=== PATIENT | female | born 1990 | race African-American/Black ===

== ENCOUNTER 2016-06-08 19:36 | Emergency (ER) | payer MEDICAID ==
[~2016-06-08 19:36] MED LIST: PREN-88 PO
== END 2016-06-08 22:20 | disposition left against medical advice (07) ==
LOC: ER 21:57
DX: R10.9 Unspecified abdominal pain (principal)

== ENCOUNTER 2016-06-09 00:54 | Emergency (ER) | payer MEDICAID ==
[~2016-06-09] VITALS: Ht 160 cm; Wt 68.6 kg
[2016-06-09 02:34] LABS: BASOPHILS % 0.8 % (0.0-2.0); EOSINOPHILS % 0.5 % (0.0-5.0); HEMATOCRIT. 48.3 % (36.0-48.0); HEMOGLOBIN. 16.2 g/dL (12.0-16.0); LYMPHOCYTES % 23.3 % (20.0-50.0); MEAN CORPUSCULAR HEMOGLOBIN 29.4 pg (28.0-32.0); MEAN CORPUSCULAR HGB CONC 33.5 g/dL (31.0-37.0); MEAN CORPUSCULAR VOLUME 87.7 fL (81.0-99.0); MEAN PLATELET VOLUME 9.5 fl (7.4-10.4); NEUTROPHILS % 67.4 % (40.0-76.0); PLATELET 205 x1000/uL (130-400); WHITE BLOOD COUNT 7.1 x1000/uL (4.5-11.0)
[2016-06-09 02:36] LABS: CLARITY URINE CLOUDY (CLEAR); COLOR URINE DARK YELLOW (YELLOW); GLUCOSE URINE NEGATIVE (NEGATIVE); KETONES URINE 1+ (NEGATIVE); LEUKOCYTE ESTERASE URINE 1+ (NEGATIVE); NITRITE URINE NEGATIVE (NEGATIVE); OCCULT BLOOD URINE NEGATIVE (NEGATIVE); PH URINE 6.5 (4.5-8.0); PROTEIN URINE 1+ (NEGATIVE); SPECIFIC GRAVITY URINE 1.039 (1.005-1.030)
[2016-06-09 02:38] LABS: CHLORIDE 99 mEq/L (98-107); INDEX HEMOLYSI 1 (1-3); INDEX ICTERIC 1 (1-4); INDEX LIPEMIC 1 (1-3)
[2016-06-09 02:39] LABS: INR 1.1; PROTHROMBIN TIME 11.6 sec
[2016-06-09 02:40] VITALS: BP 112/79
[2016-06-09 02:46] LABS: ALANINE AMINOTRANSFERASE 26 IU/L (13-61); ALBUMIN 4.3 g/dL (3.4-5.0); ANION GAP 14; CALCIUM 9.1 mg/dL (8.5-10.1); CARBON DIOXIDE 29 mEq/L (21-32); LIPASE 122 IU/L (73-393); UREA NITROGEN BLOOD 12 mg/dL (7-21); eGFR > 60 mL/min (>60)
[2016-06-09 03:00] LABS: SQUAMOUS EPITHELIAL CELL URINE 3+ /lpf (RARE/1+)
[2016-06-09 03:03] LABS: RBC URINE 0-2 /hpf (0-2)
[2016-06-09 03:06] LABS: BACTERIA URINE 1+
== END 2016-06-09 03:53 | disposition home or self-care (01) ==
LOC: ER 00:57
DX: N39.0 Urinary tract infection, site not specified (principal); F12.10 Cannabis abuse, uncomplicated; F17.200 Nicotine dependence, unspecified, uncomplicated
CPT/HCPCS: 36415; 80053; 81001; 81025; 83690; 85025; 85610; 99284

== ENCOUNTER 2017-02-26 21:39 | Emergency (ER) | payer MEDICAID ==
[~2017-02-26] VITALS: Ht 160 cm; Wt 64.0 kg
[2017-02-27] MEDS ORDERED: KETOROLAC 60MG/2ML VIAL IM ONE (09:00)
[2017-02-27] MEDS ORDERED: LIDOCAINE HCL 1% 20ML VIAL (Pyxis) INJ INFIL ONE (09:30)
[2017-02-27 09:49] LABS: CLARITY URINE CLOUDY (CLEAR); COLOR URINE YELLOW (YELLOW); KETONES URINE TRACE (NEGATIVE); LEUKOCYTE ESTERASE URINE 2+ (NEGATIVE); NITRITE URINE NEGATIVE (NEGATIVE); OCCULT BLOOD URINE TRACE (NEGATIVE); PH URINE 5.5 (4.5-8.0); PROTEIN URINE NEGATIVE (NEGATIVE); SPECIFIC GRAVITY URINE 1.018 (1.005-1.030)
[2017-02-27 11:41] VITALS: BP 118/72
== END 2017-02-27 12:08 | disposition home or self-care (01) ==
LOC: ER 21:39
DX: N76.4 Abscess of vulva (principal)
CPT/HCPCS: 56405; 81001; 81025; 87077; 87086; 96372; 99284; J1885; J3490; X7700; Z7610

== ENCOUNTER 2017-11-17 13:02 | Emergency (ER) | payer MEDICAID ==
[~2017-11-17] VITALS: Ht 165.1 cm; Wt 60.0 kg
[2017-11-17 13:08] VITALS: BP 88/56
== END 2017-11-17 15:19 | disposition left against medical advice (07) ==
LOC: ER 13:18
DX: R51 Headache (principal); Z53.21 Procedure and treatment not carried out due to patient leaving prior to being seen by health care provider

== ENCOUNTER 2019-06-11 21:43 | Emergency (ER) | payer MEDICAID ==
[~2019-06-11] VITALS: Ht 167.6 cm; Wt 64.0 kg
[2019-06-11] MEDS ORDERED: IBUPROFEN 600MG TABLET PO ONE (23:30)
[2019-06-12 00:14] VITALS: BP 115/62
== END 2019-06-12 00:33 | disposition home or self-care (01) ==
LOC: ER 21:43
DX: N94.89 Other specified conditions associated with female genital organs and menstrual cycle (principal)
CPT/HCPCS: 99282; 99283

== ENCOUNTER 2020-04-25 12:30 | Emergency (ER) | payer MEDICAID ==
[~2020-04-25] VITALS: Ht 170.2 cm; Wt 61.0 kg
[2020-04-25] MEDS ORDERED: SODIUM CHLORIDE 0.9% 1,000 ML IV ONE (13:15)
[2020-04-25 13:46] LABS: BASOPHILS % 0.3 % (0.0-2.0); EOSINOPHILS % 0.4 % (0.0-5.0); HEMATOCRIT. 31.1 % (36.0-48.0); HEMOGLOBIN. 9.9 g/dL (12.0-16.0); LYMPHOCYTES % 17.9 % (20.0-50.0); MEAN CORPUSCULAR HEMOGLOBIN 24.5 pg (28.0-32.0); MEAN CORPUSCULAR VOLUME 77.2 fL (81.0-99.0); MONOCYTES % 6.9 % (2.0-8.0); NEUTROPHILS % 74.5 % (40.0-76.0); PLATELET 125 x1000/uL (130-400); RED BLOOD CELL COUNT 4.02 mill/uL (4.2-5.4); RED CELL DISTRIBUTION WIDTH 17.3 % (11.6-14.6)
[2020-04-25 14:02] LABS: CHLORIDE 107 mEq/L (98-107)
[2020-04-25 14:07] LABS: ETHANOL BLOOD < 10 mg/dL
[2020-04-25 14:48] LABS: HCG SCREEN POSITIVE
[2020-04-25 14:59] LABS: METHADONE URINE SCREEN NEGATIVE (NEGATIVE); OPIATES URINE SCREEN NEGATIVE (NEGATIVE)
[2020-04-25 15:00] LABS: *BARBITURATES SCREEN URINE NEGATIVE (NEGATIVE); *BENZODIAZEPINES SCREEN URINE NEGATIVE (NEGATIVE); *COCAINE SCREEN URINE NEGATIVE (NEGATIVE)
[2020-04-25 15:05] LABS: *AMPHETAMINES SCREEN URINE PRESUMTIVE POSITIVE (NEGATIVE); CANNABINOID URINE SCREEN PRESUMTIVE POSITIVE (NEGATIVE); PHENCYCLIDINE URINE SCREEN PRESUMTIVE POSITIVE (NEGATIVE)
[2020-04-25 15:25] LABS: CLARITY URINE CLOUDY (CLEAR); COLOR URINE DARK YELLOW (YELLOW); KETONES URINE TRACE (NEGATIVE); LEUKOCYTE ESTERASE URINE 1+ (NEGATIVE); NITRITE URINE NEGATIVE (NEGATIVE); OCCULT BLOOD URINE NEGATIVE (NEGATIVE); PH URINE 5.5 (4.5-8.0); PROTEIN URINE TRACE (NEGATIVE); SPECIFIC GRAVITY URINE 1.023 (1.005-1.030)
[2020-04-25 16:45] VITALS: BP 128/68
== END 2020-04-25 17:50 | disposition short-term general hospital (02) ==
LOC: ER 12:30
DX: O99.513 Diseases of the respiratory system complicating pregnancy, third trimester (principal); J06.9 Acute upper respiratory infection, unspecified; O26.893 Other specified pregnancy related conditions, third trimester; R10.9 Unspecified abdominal pain; F15.10 Other stimulant abuse, uncomplicated; F17.200 Nicotine dependence, unspecified, uncomplicated; Z3A.35 35 weeks gestation of pregnancy
CPT/HCPCS: 36415; 76805; 76818; 80053; 80305; 80320; 81003; 81025; 83690; 83880; 84484; 84702; 84703; 85025; 86850; 86870; 86900; 86901; 93005; 96360; 99285; J7030; G0480

== ENCOUNTER 2020-04-25 17:02 | Observation (INO) | payer MEDICAID ==
[~2020-04-25] VITALS: Ht 157.5 cm; Wt 64.4 kg
[2020-04-25] MEDS ORDERED: DEXT 5%/LACTATED RINGERS 1,000 ML IV ONE (17:45)
[2020-04-25] MEDS ORDERED: CEFAZOLIN 2,000 MG in DEXT 5% WATER 100 ML IV SCH (17:45)
[2020-04-25] MEDS ORDERED: CITRIC ACID/SODIUM CITRATE SOLN 30ML UDC PO SCH (17:45)
== END 2020-04-25 23:07 | disposition home or self-care (01) ==
LOC: 8 EST LDRP 17:02
PROVIDERS: ADMIT Obstetrics & Gynecology; ATTEND Obstetrics & Gynecology
DX: O26.893 Other specified pregnancy related conditions, third trimester (principal); R10.13 Epigastric pain; Z3A.35 35 weeks gestation of pregnancy
CPT/HCPCS: 59025; 96365; G0378; J0690; J7060; 96360; 99281

== ENCOUNTER 2020-04-25 22:40 | Emergency (ER) | payer MEDICAID ==
[~2020-04-25] VITALS: Ht 170.2 cm; Wt 82.0 kg
[2020-04-26 01:26] VITALS: BP 112/65
== END 2020-04-26 01:45 | disposition home or self-care (01) ==
LOC: ER 22:40
DX: O23.43 Unspecified infection of urinary tract in pregnancy, third trimester (principal); O26.893 Other specified pregnancy related conditions, third trimester; R07.89 Other chest pain; Z3A.35 35 weeks gestation of pregnancy
CPT/HCPCS: 93005; 99283

== ENCOUNTER 2021-08-17 13:43 | Emergency (ER) | payer MEDICAID ==
[~2021-08-17] VITALS: Ht 160 cm; Wt 36.5 kg
[2021-08-17] MEDS ORDERED: MORPHINE SULFATE 4 MG/ML CPJ (NOT FOR IM USE) IV STA (14:23)
[2021-08-17] MEDS ORDERED: ONDANSETRON HCL 4MG/2ML INJ IV STA (14:23)
[2021-08-17] MEDS ORDERED: PIPERACILLIN/TAZ 3.375G PREMIX 50 ML IV ONE (14:30)
[2021-08-17] MEDS ORDERED: VANCOMYCIN 1G PREMIX 200 ML IV ONE (14:30)
[2021-08-17] MEDS ORDERED: SODIUM CHLORIDE 0.9% 1000ML BAG (SEPSIS BOLUS) IV ONE (14:30)
[2021-08-17] MEDS ORDERED: TETANUS, DIPHTHERIA, PERTUSSIS VAC/PF 0.5ML (>10YR OLD) IM ONE (15:00)
[2021-08-17 15:02] LABS: BASOPHILS % 0.4 % (0.0-2.0); EOSINOPHILS % 0.3 % (0.0-5.0); HEMATOCRIT. 39.5 % (36.0-48.0); HEMOGLOBIN. 12.9 g/dL (12.0-16.0); LYMPHOCYTES % 14.1 % (20.0-50.0); MEAN CORPUSCULAR VOLUME 82.5 fL (81.0-99.0); MEAN PLATELET VOLUME 9.6 fl (7.4-10.4); MONOCYTES % 10.3 % (2.0-8.0); NEUTROPHILS % 74.9 % (40.0-76.0); PLATELET 186 x1000/uL (130-400); RED BLOOD CELL COUNT 4.79 mill/uL (4.2-5.4); RED CELL DISTRIBUTION WIDTH 15.2 % (11.6-14.6)
[2021-08-17 15:05] LABS: CHLORIDE 100 mEq/L (98-107); INR 1.2; PROTHROMBIN TIME 12.4 sec (9.6-11.0)
[2021-08-17 15:12] LABS: ETHANOL BLOOD < 10 mg/dL
[2021-08-17 15:58] LABS: HCG SCREEN NEGATIVE
[2021-08-17 17:44] VITALS: BP 132/45
[2021-08-17] MEDS ORDERED: CEPH500C2 MT (18:04)
[2021-08-17] MEDS ORDERED: DOXY75TA MT (18:04)
== END 2021-08-17 17:46 | disposition home or self-care (01) ==
LOC: ER 13:43 → CANBEDREQ 22:42
DX: S51.812A Laceration without foreign body of left forearm, initial encounter (principal); F15.10 Other stimulant abuse, uncomplicated; Z20.822 Contact with and (suspected) exposure to COVID-19; X99.9XXA Assault by unspecified sharp object, initial encounter; Y93.89 Activity, other specified; Y92.488 Other paved roadways as the place of occurrence of the external cause
CPT/HCPCS: 29125; 36415; 73090; 73206; 80053; 80320; 83605; 84145; 84703; 85025; 85610; 87040; 87426; 90471; 90715; 96365; 96368; 96375; 99285; C9803; J2270; J2405; J2543; J3370; J7030; G0480

== ENCOUNTER 2021-12-10 10:22 | Emergency (ER) | payer MEDICAID ==
[~2021-12-10] VITALS: Ht 160 cm; Wt 63.0 kg
[~2021-12-10 10:22] MED LIST changes: +CEPH500C2 MT; +DOXY75TA MT
[2021-12-10 10:24] VITALS: BP 93/41
[2021-12-10] MEDS ORDERED: LIDOCAINE HCL 1% 20ML VIAL (Pyxis) INJ INFIL ONE (16:15)
[2021-12-10] MEDS ORDERED: LIDOCAINE HCL 1% 10 MG/ML 10ML VIAL IJ NR (16:45)
[2021-12-10] MEDS ORDERED: AMOX1TAB16 MT (18:24)
[2021-12-10] MEDS ORDERED: ACET-2708 MT (18:26)
[2021-12-10] MEDS ORDERED: AMOXICILLIN/POTASSIUM CLAVULANATE 875/125MG TAB PO ONE (18:30)
== END 2021-12-10 19:05 | disposition home or self-care (01) ==
LOC: ER 10:22
DX: N75.0 Cyst of Bartholin's gland (principal)
CPT/HCPCS: 56420; 99284; J3490; Z7610